=== PATIENT | female | born 1980 | race Caucasian/White ===

== ENCOUNTER 2021-04-30 13:05 | Outpatient (CLI) | payer OTHER ==
[2021-04-30] MEDS ORDERED: PRENATAL TABLE1 EAC1 PO (13:58)
[2021-04-30] MEDS ORDERED: ADULT ASPIRIN81 MG PO (13:59)
== END 2021-05-01 14:21 | disposition home or self-care (01) ==
LOC: OBS/DEL 13:05
PROVIDERS: ATTEND Obstetrics & Gynecology
DX: O26.893 Other specified pregnancy related conditions, third trimester (principal); R11.2 Nausea with vomiting, unspecified; R42 Dizziness and giddiness; Z3A.30 30 weeks gestation of pregnancy

== ENCOUNTER 2021-06-24 08:15 | Inpatient (IN) | payer OTHER ==
[~2021-06-24] VITALS: Ht 154.9 cm; Wt 83.9 kg
[~2021-06-24 08:15] MED LIST: ADULT ASPIRIN81 MG PO; PRENATAL TABLE1 EAC1 PO
== END 2021-06-27 12:13 | disposition home or self-care (01) | DRG 788 ==
LOC: LDR 20:53 → OB/GYN 20:53 → LDR 06-25 08:15 → OB/GYN 06-27 12:13
PROVIDERS: ADMIT Obstetrics & Gynecology; ATTEND Obstetrics & Gynecology
PROC: 4A1HXFZ Monitoring of Products of Conception, Cardiac Rhythm, External Approach (ICD-10-PCS; 2021-06-25)
PROC: 10D00Z1 Extraction of Products of Conception, Low, Open Approach (ICD-10-PCS; principal; 2021-06-25 00:45)
DX: O34.211 Maternal care for low transverse scar from previous cesarean delivery (principal); O75.82 Onset (spontaneous) of labor after 37 completed weeks of gestation but before 39 completed weeks gestation, with delivery by (planned) cesarean section; Z3A.38 38 weeks gestation of pregnancy; Z37.0 Single live birth